=== PATIENT | female | born 1965 | race Caucasian/White ===

== ENCOUNTER → 2016-07-16 | Outpatient (CLI) | payer MEDICAID ==
[~2016-07-16] MED LIST: ALPRAZOLAM0.5 MG PO; AMLO5TAB PO; CYCLOBENZAPRINE10 MG PO; GABAPENTIN 600600 MG PO; HYZAAR1 TA1 PO; MULTIVITAMIN1 SGL PO; NORCO 325 MG-51 TAB PO; PHENERGAN25 M3 PO; THE MEDICINE S300 MG PO; VENLAFAXINE HCL25 MG PO
[2016-07-16 18:09] LABS: CORONAVIRUS 229E NOT DETECTED (NOT DETECTE); CORONAVIRUS HKU 1 NOT DETECTED (NOT DETECTE); CORONAVIRUS NL63 NOT DETECTED (NOT DETECTE); CORONAVIRUS OC43 NOT DETECTED (NOT DETECTE); RHINOVIRUS/ENTEROVIRUS NOT DETECTED (NOT DETECTE)
[2016-07-16 18:35] LABS: LYMPH # 1.3 K/mm3 (0.7-4.5); LYMPH % 10.3 % (10-50.0)
[2016-07-16 19:01] LABS: HEMOGLOBIN 11.9 g/dL (12.2-16.2)
[2016-07-16 19:07] LABS: BUN 9 mg/dL (7-18)
[2016-07-16 19:10] LABS: GFR (ESTIMATED) 75 ML/MIN (59-)
--- NOTE | 2016-07-17 08:34 | RADIOLOGY REPORT PS360 ---
CHEST(2 VIEWS-NOT PORTABLE) COMPARISON: None HISTORY: Shortness of breath TECHNIQUE: PA and lateral chest FINDINGS: The lung villegas are well expanded. There is a subtle ill-defined opacity in the right infrahilar region best seen on the PA projection but likely representing a mild pneumonic infiltrate right lower lobe. The right upper lung field and left lung field are clear. Cardiac size is normal and the vascularity is normal. There is large calcified right paratracheal node. There is no pleural fluid. IMPRESSION: Minimal right perihilar and right lower lobe pneumonia
== END ==
LOC: LAB 18:04
PROVIDERS: Nurse Practitioner Family
DX: R50.9 Fever, unspecified (principal); R06.02 Shortness of breath